=== PATIENT | female | born 1990 | race African-American/Black ===

== ENCOUNTER 2022-01-04 08:54 | Emergency (ER) | payer OTHER ==
[2022-01-04 09:01] VITALS: BP 130/94; PULSE 63; TEMP 97.9; BMI 24.5
[2022-01-04] MEDS ORDERED: KETOROLAC TROMETHAMINE 30 MG/1 ML VIAL IVPB ONE (09:43)
[2022-01-04] MEDS ORDERED: SODIUM CHLORIDE 0.9% 500 ML INFUS.BAG IV ONE (09:50)
[2022-01-04] MEDS ORDERED: KETOROLAC TROMETHAMINE 30 MG/1 ML VIAL ONE (09:52)
[2022-01-04 10:27] LABS: BASO % 0.9 % (0-2.0); EOS % 1.6 % (0-4.5); HEMATOCRIT 39.1 % (32.4-45.2); HEMOGLOBIN 12.6 GM/dL (10.7-15.3); LYMPH % 26.8 % (8-40); MCH 28.6 pg (25.7-33.7); MCHC 32.3 g/dl (32.0-36.0); MEAN CELL VOLUME 88.5 fl (80-96); MEAN PLT VOLUME 11.5 fl (7.5-11.1); NEUT % 59.7 % (42.8-82.8); PLATELET COUNT 173 10^3/uL (134-434); RBC 4.41 M/mm3 (3.60-5.2); RDW 13.8 % (11.6-15.6); WHITE BLOOD COUNT 5.5 K/mm3 (4.0-10.0)
[2022-01-04 10:49] LABS: CALCIUM 9.2 mg/dL (8.5-10.1)
[2022-01-04 10:50] LABS: ALBUMIN 3.8 g/dl (3.4-5.0); BLOOD UREA NITROGEN 12.1 mg/dL (7-18)
[2022-01-04 10:53] LABS: CREATININE 0.8 mg/dL (0.55-1.3)
[2022-01-04 10:54] LABS: TOT PROT 7.8 g/dl (6.4-8.2)
[2022-01-04 10:55] LABS: BILIRUBIN,TOTAL 0.4 mg/dL (0.2-1)
[2022-01-04 11:05] LABS: HCG,QUALITATIVE URINE Negative
[2022-01-04 11:09] LABS: EPI CELLS 18 /uL (0-25.1); HYALINE CASTS 1 /uL (0-3.1); PH,URINE 5.5 (5.0-8.0); URINE APPEARANCE CLOUDY; URINE BACTERIA 136 /uL (0-1359); URINE BILIRUBIN NEGATIVE (NEGATIVE); URINE COLOR YELLOW; URINE GLUCOSE (UA) NEGATIVE (NEGATIVE); URINE KETONE NEGATIVE (NEGATIVE); URINE LEUK ESTERASE NEGATIVE (NEGATIVE); URINE NITRITE NEGATIVE (NEGATIVE); URINE PROTEIN 1+ (NEGATIVE); URINE RBC 3983 /uL (0-23.9); URINE UROBILINOGEN 0.2 mg/dL (0.2-1.0); URINE WBC 16 /uL (0-25.8)
== END 2022-01-04 13:53 | disposition home or self-care (01) ==
LOC: JER 08:54
PROC: 3E0333Z Introduction of Anti-inflammatory into Peripheral Vein, Percutaneous Approach (ICD-10-PCS; principal; 2022-01-04)
DX: R07.9 Chest pain, unspecified (principal)
CPT/HCPCS: 36415; 71046-TC-FY; 80053; 81003; 84484; 84703; 85025; 87086; 93005; 93010; 99285-25